=== PATIENT | female | born 1995 | race Caucasian/White ===

== ENCOUNTER 2018-09-24 05:50 | Emergency (ER) | payer BC ==
--- NOTE | 2018-09-24 05:55 | ER Report ---
History and Physical Time Seen By MD: 05:52 (DOMO NUNN MD) HPI/ROS CHIEF COMPLAINT: Nausea, vomiting diarrhea, sore throat and body aches HISTORY OF PRESENT ILLNESS: Patient is an otherwise healthy 22-year-old female who presents to the emergency department with chief complaint mostly of nausea and vomiting that began around 3 AM this morning. Patient states that she was seen in urgent care on Monday for complaint of "fever and sore throat". She was recently started on an antibiotic but she is unsure of the name however the dosing schedule sounds as if this would be Zithromax. She is also complaining of some right ear pain continued sore throat and fevers at home although she is afebrile here in the emergency department. Patient lives and works in [place] but denies any ill contacts either at home or at work. She denies or breast-feeding. Patient states that she did have some diarrhea yesterday but de nies any blood or mucus in her stools. Patient denies any other significant travel history. The main reason for her coming in this morning was that nausea and vomiting. REVIEW OF SYSTEMS: Constitutional: Fevers at home Eyes: No discharge. ENT: Sore throat, right ear pain Cardiovascular: No chest pain, no palpitations. Respiratory: Occasional dry cough Gastrointestinal: No abdominal pain, however patient with nausea and vomiting and diarrhea yesterday Genitourinary: No hematuria. Musculoskeletal: No back pain. Generalized body aches Skin: No rashes. Neurological: Headache (DOMO NUNN MD) Allergies: Coded Allergies: No Known Drug Allergies (Unverified , 09/24/18) Home Meds Active Scripts Ondansetron Hcl (ZOFRAN) 4 Mg Tablet, 4 MG PO Q6H for Nausea, #20 TAB 0 Refills Prov:DOMO NUNN MD 09/24/18 Past Medical/Surgical History Patient denies any significant past medical history (DOMO NUNN MD) Constitutional Vital Sign - Last 24 Hours 09/24/18 09/24/18 09/24/18 09/24/18 05:53 05:53 06:00 06:20 Temp 97.4 Pulse 87 74 Resp 17 B/P (MAP) 124/64 124/64 (84) 110/68 (82) Pulse Ox 97 98 O2 Delivery Room Air 09/24/18 06:30 B/P (MAP) 112/68 (83) Intake and Output 09/23/18 09/23/18 09/24/18 15:02 23:02 07:02 Intake Total 1000 ml Balance 1000 ml (LAURMARC,TERESE V DO) Physical Exam General/Constitutional: Patient is awake, alert, nontoxic and in no acute respiratory distress. Head: Normocephalic and atraumatic. Eyes: Conjunctival injected, Sclera are clear and anicteric. Ears:External canals are clear. Tympanic membrane appears normal, right tympanic membrane appears erythematous with purulent fluid behind the eardrum Nares: No rhinorrhea or bleeding. Turbinates are pink and moist. Oropharyngeal: Mucous membranes are moist. There is no pharyngeal erythema or exudate. There are no palatal petechiae. Uvula is midline and symmetrical. Neck: Supple, no adenopathy. Negative Kernig and Brudzinski signs Cardiovascular: Heart is regular rate and rhythm without audible murmurs, rubs or gallops. Pulmonary: Lungs are clear to auscultation bilaterally. There are no wheezes, rales, or rhonchi. Chest rise is symmetrical Abdomen: Soft, nontender, no guarding or peritoneal signs. Extremities: No gross deformities, No peripheral cyanosis. Able to move all 4 extremities. Neuro: Alert and oriented X3, Skin: No rashes, skin is warm dry and well perfused. (DOMO NUNN MD) Medical Decision Making Data Points Result Diagram: 09/24/18 0602 09/24/18 0602 Laboratory Hematology Test 09/24/18 05:55 09/24/18 06:01 09/24/18 06:02 Urine Color Yellow Urine Clarity Clear Urine pH 6.0 pH (4.8-9.5) Urine Specific [place] 1.017 Urine Protein Negative mg/dL (NEGATIVE) Urine Glucose (UA) Negative mg/dL (NEGATIVE) Urine Ketones Negative mg/dL (NEGATIVE) Urine Blood Small (NEGATIVE) Urine Nitrite Negative (NEGATIVE) Urine Bilirubin Negative (NEGATIVE) Urine Urobilinogen 0.2 mg/dL (0.2-1.9) Urine Leukocyte Esterase Negative (NEGATIVE) Urine RBC 4 /HPF (0-2/HPF) Urine WBC 5 /HPF (0-5/HPF) Urine Squamous Epithelial Cells Many /LPF (</=FEW) Urine Transitional Epithelial Cells Few /LPF (NONE-FEW) Urine Bacteria Few /HPF (NONE-FEW) Urine Mucus None /HPF (NONE-FEW) Urine HCG, Qualitative Negative (NEGATIVE) Group A Streptococcus (PCR) Negative (NEGATIVE) Red Blood Count 4.90 M/uL (4.17-5.56) Mean Corpuscular Volume 90.1 fL (80.0-96.0) Mean Corpuscular Hemoglobin 30.7 pg (26.0-33.0) Mean Corpuscular Hemoglobin Concent 34.0 g/dL (32.0-36.0) Red Cell Distribution Width 12.9 % (11.5-14.5) Mean Platelet Volume 9.3 fL (7.2-11.1) Neutrophils (%) (Auto) 74.0 % (39.4-72.5) Lymphocytes (%) (Auto) 18.2 % (17.6-49.6) Monocytes (%) (Auto) 6.5 % (4.1-12.4) Eosinophils (%) (Auto) 1.0 % (0.4-6.7) Basophils (%) (Auto) 0.3 % (0.3-1.4) Nucleated RBC Relative Count (auto) 0.0 /100WBC Neutrophils # (Auto) 8.8 K/uL (2.0-7.4) Lymphocytes # (Auto) 2.2 K/uL (1.3-3.6) Monocytes # (Auto) 0.8 K/uL (0.3-1.0) Eosinophils # (Auto) 0.1 K/uL (0.0-0.5) Basophils # (Auto) 0.0 K/uL (0.0-0.1) Nucleated RBC Absolute Count (auto) 0.00 K/uL Sodium Level 140 mmol/L (137-145) Potassium Level 3.4 mmol/L (3.5-5.0) Chloride Level 105 mmol/L (98-107) Carbon Dioxide Level 22 mmol/L (22-31) Blood Urea Nitrogen 8 mg/dl (7-18) Creatinine 0.80 mg/dl (0.52-1.04) Glomerular Filtration Rate Calc > 60.0 Random Glucose 99 mg/dl (75-110) Calcium Level 9.3 mg/dl (8.4-10.2) Chemistry Test 09/24/18 05:55 09/24/18 06:01 09/24/18 06:02 Urine Color Yellow Urine Clarity Clear Urine pH 6.0 pH (4.8-9.5) Urine Specific [place] 1.017 Urine Protein Negative mg/dL (NEGATIVE) Urine Glucose (UA) Negative mg/dL (NEGATIVE) Urine Ketones Negative mg/dL (NEGATIVE) Urine Blood Small (NEGATIVE) Urine Nitrite Negative (NEGATIVE) Urine Bilirubin Negative (NEGATIVE) Urine Urobilinogen 0.2 mg/dL (0.2-1.9) Urine Leukocyte Esterase Negative (NEGATIVE) Urine RBC 4 /HPF (0-2/HPF) Urine WBC 5 /HPF (0-5/HPF) Urine Squamous Epithelial Cells Many /LPF (</=FEW) Urine Transitional Epithelial Cells Few /LPF (NONE-FEW) Urine Bacteria Few /HPF (NONE-FEW) Urine Mucus None /HPF (NONE-FEW) Urine HCG, Qualitative Negative (NEGATIVE) Group A Streptococcus (PCR) Negative (NEGATIVE) White Blood Count 11.9 k/uL (4.5-11.0) Red Blood Count 4.90 M/uL (4.17-5.56) Hemoglobin 15.0 g/dL (12.0-16.0) Hematocrit 44.1 % (34.0-47.0) Mean Corpuscular Volume 90.1 fL (80.0-96.0) Mean Corpuscular Hemoglobin 30.7 pg (26.0-33.0) Mean Corpuscular Hemoglobin Concent 34.0 g/dL (32.0-36.0) Red Cell Distribution Width 12.9 % (11.5-14.5) Platelet Count 272 K/uL (150-450) Mean Platelet Volume 9.3 fL (7.2-11.1) Neutrophils (%) (Auto) 74.0 % (39.4-72.5) Lymphocytes (%) (Auto) 18.2 % (17.6-49.6) Monocytes (%) (Auto) 6.5 % (4.1-12.4) Eosinophils (%) (Auto) 1.0 % (0.4-6.7) Basophils (%) (Auto) 0.3 % (0.3-1.4) Nucleated RBC Relative Count (auto) 0.0 /100WBC Neutrophils # (Auto) 8.8 K/uL (2.0-7.4) Lymphocytes # (Auto) 2.2 K/uL (1.3-3.6) Monocytes # (Auto) 0.8 K/uL (0.3-1.0) Eosinophils # (Auto) 0.1 K/uL (0.0-0.5) Basophils # (Auto) 0.0 K/uL (0.0-0.1) Nucleated RBC Absolute Count (auto) 0.00 K/uL Glomerular Filtration Rate Calc > 60.0 Calcium Level 9.3 mg/dl (8.4-10.2) Urinalysis Test 09/24/18 05:55 Urine Color Yellow Urine Clarity Clear Urine pH 6.0 pH (4.8-9.5) Urine Specific [place] 1.017 Urine Protein Negative mg/dL (NEGATIVE) Urine Glucose (UA) Negative mg/dL (NEGATIVE) Urine Ketones Negative mg/dL (NEGATIVE) Urine Blood Small (NEGATIVE) Urine Nitrite Negative (NEGATIVE) Urine Bilirubin Negative (NEGATIVE) Urine Urobilinogen 0.2 mg/dL (0.2-1.9) Urine Leukocyte Esterase Negative (NEGATIVE) Urine RBC 4 /HPF (0-2/HPF) Urine WBC 5 /HPF (0-5/HPF) Urine Squamous Epithelial Cells Many /LPF (</=FEW) Urine Transitional Epithelial Cells Few /LPF (NONE-FEW) Urine Bacteria Few /HPF (NONE-FEW) Urine Mucus None /HPF (NONE-FEW) Urine HCG, Qualitative Negative (NEGATIVE) (TERESE DAVILA DO) ED Course/Re-evaluation ED Course 09/24/2018 6:06:04 am patient with nausea and vomiting along with generalized body aches and headache but no evidence of nuchal rigidity on exam. Plan at this time will be to check CBC, basic metabolic panel urinalysis and test will also give IV fluids IV Zofran and IV Decadron IV Toradol for pain. He is unclear what antibiotic the patient is taking but my instinct is that it is Zithromax based on the dosing schedule for this reason we will give IV Rocephin for better gram-positive coverage. (DOMO NUNN MD) Clinical Indication for ER IV: Hydration, IV Access ED Course 09/24/2018 6:50:18 am Pt signed out to pending labs. Pt states she started monday with fever and sorethroat. Pt was started on an unknown abx that she takes once a day. Pt took one dose so far. Pt states now has nausea, vomiting, headache, r ear pain with her sorethroat. Pt states she has not been able to eat or drink due to ear and throat pain and nausea. Pt felt dizzy this am so came to ed. Pt states she is feeling a little better post fluids and medication which Dr. Nunn ordered. Will give a second liter of nss. Pt denies fatigue so I do not believe she has mono however pt does have some cervical and lymph nodes. I suspect pt will be able to go home after second liter nss. pt signed out to Dr. Olvera. Decision to Disposition Date: Sep 24, 2018 Decision to Disposition Time: 06:53 (TERESE DAVILA DO) Depart Departure Latest Vital Signs Vital Signs Date Time Temp Pulse Resp B/P (MAP) Pulse Ox O2 Delivery O2 Flow Rate FiO2 09/24/18 06:30 112/68 (83) 09/24/18 06:20 74 98 09/24/18 05:53 97.4 17 Room Air (TERESE DAVILA DO) Impression: Primary Impression: Nausea & vomiting Additional Impression: URI, acute Condition: Improved Disposition: HOME OR SELF-CARE New Scripts Ondansetron Hcl (ZOFRAN) 4 Mg Tablet 4 MG PO Q6H for Nausea, #20 TAB 0 Refills Prov: DOMO NUNN MD 09/24/18 Departure Forms: ER Transition Record, Medications Reconciliation, Off Work/School Form, School or Work Release?: Work Number of days to be released: 2 Patient Portal Information Patient Instructions: Acute Nausea and Vomiting (ED) Additional Instructions: Continue your antibiotic until finished. zofran one every 8 hours as needed for nausea. Motrin (advil, ibuprofen) 400mg every 6 hours as needed for pain, fever. Tylenol 650mg every 4 hours as needed for pain or fever Follow up with your family doctor. Return if symptoms worsen prior to seeing your doctor. Problem Qualifiers Primary Impression: Nausea & vomiting Vomiting type: unspecified Vomiting Intractability: unspecified Qualified Codes: R11.2 - Nausea with vomiting, unspecified DOMO NUNN MD Sep 24, 2018 05:55 TERESE DAVILA DO Sep 24, 2018 06:55
[2018-09-24] MEDS ORDERED: NS(*) 0.9% 1000 ML BAG 1,000 ML IV ONE ×2 (06:00→06:50)
[2018-09-24] MEDS ORDERED: ONDANSETRON 4 MG/2 ML VIAL IVP ONE (06:00)
[2018-09-24] MEDS ORDERED: KETOROLAC 15 MG/ML VIAL IVP ONE (06:00)
[2018-09-24] MEDS ORDERED: cefTRIAXone 1 GM VIAL IVP ONE (06:00)
[2018-09-24] MEDS ORDERED: DEXAMETHASONE SOD PHOS 10MG/ML IVP ONE (06:00)
[2018-09-24] MEDS ORDERED: ONDA4TAB97 PO (06:12)
[2018-09-24 06:18] LABS: PLATELET COUNT, AUTOMATED 272 K/uL (150-450)
[2018-09-24 07:00] VITALS: BP 100/59
== END 2018-09-24 07:53 | disposition home or self-care (01) ==
LOC: ER 06:10
DX: R11.2 Nausea with vomiting, unspecified (principal); J06.9 Acute upper respiratory infection, unspecified
CPT/HCPCS: 81001; 81025; 85025; 86308; 87502; 87653; 96361; 96374; 96375; 99284; J0696; J1100; J1885; J2405; J7030; 82310; 82374; 82435; 82565; 82947; 84132; 84295; 84520